=== PATIENT | male | born 1985 | race Caucasian/White ===

== ENCOUNTER 2021-11-03 01:27 | Emergency (ER) | payer OTHER ==
[~2021-11-03] VITALS: Ht 177.8 cm; Wt 95.4 kg
[2021-11-03 01:39] VITALS: BP 178/112
[2021-11-03 01:41] VITALS: BP 180/106
[2021-11-03 01:43] VITALS: BP 162/104
[2021-11-03] MEDS ORDERED: AMOXICILLIN500 MG PO (01:55)
[2021-11-03] MEDS ORDERED: LORTAB 1010 MG PO (01:55)
[2021-11-03 02:00] VITALS: BP 108/84
[2021-11-03 02:13] VITALS: BP 108/84
== END 2021-11-03 02:14 | disposition home or self-care (01) ==
LOC: ED 01:27
DX: K04.7 Periapical abscess without sinus (principal); S02.5XXA Fracture of tooth (traumatic), initial encounter for closed fracture; X58.XXXA Exposure to other specified factors, initial encounter